=== PATIENT | male | born 1985 | race Caucasian/White ===

== ENCOUNTER 2017-06-19 14:35 | Emergency (ER) | payer SELFPAY ==
[~2017-06-19] VITALS: Ht 172.7 cm; Wt 81.5 kg
[~2017-06-19 14:35] MED LIST: IBUP800T23 PO; NAPR220T95 PO; TRAM50 PO
[2017-06-19 14:36] VITALS: BP 117/71; PULSE 78; RESP 16; TEMP 97.4; O2SAT 100
--- NOTE | 2017-06-19 15:56 | PD ---
HPI Chief Complaint: Injury Time Seen by Provider: 15:18 Travel History International Travel<30 days: No Contact w/Intl Traveler<30days: No Traveled to known affect area: No History of Present Illness HPI 31-year-old male here with right shoulder pain for the last 6 months. He denies specific trauma. 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 He reports pain with external rotation and ordered extension of the right upper extremity. Symptoms slightly improved with rest. He denies paresthesia or weakness of the extremity. No other symptoms. Symptom severity is moderate. PFSH Social History Alcohol Use: No Tobacco Use: No Substance Use: No Allergies-Medications (Allergen,Severity, Reaction): Coded Allergies: No Known Allergies (Verified Adverse Reaction, Unknown, 06/19/17) Reported Meds & Prescriptions Reported Meds & Active Scripts Active Ibuprofen 800 Mg Tab 800 Mg PO TID Ultram (Tramadol HCl) 50 Mg Tab 50 Mg PO Q6H PRN FOR PAIN Reported Aleve (Naproxen Sodium) 220 Mg Tab 220 Mg PO TODAY Review of Systems Except as stated in HPI: all other systems reviewed are Neg General / Constitutional: No: Fever Eyes: No: Visual changes HENT: No: Headaches Cardiovascular: No: Chest Pain or Discomfort Respiratory: No: Shortness of Breath Gastrointestinal: No: Abdominal Pain Genitourinary: No: Dysuria Physical Exam Narrative GENERAL: Alert and well-appearing male. SKIN: Warm and dry. HEAD: Normocephalic. EYES: No injection or drainage. NECK: Supple, trachea midline. CARDIOVASCULAR: Regular rate and rhythm without murmurs, gallops, or rubs. RESPIRATORY: Breath sounds equal bilaterally. No accessory muscle use. MUSCULOSKELETAL: No cyanosis, or edema. Right shoulder: Patient reports pain in the anterior and posterior aspect of the shoulder with forward extension and external rotation of the shoulder. Positive Neer's test. No deformity. 2+ distal pulses. Normal sensation. Brisk cap refill. BACK: without obvious deformity. Mild right trapezius muscle tenderness. Data Data Last Documented VS Vital Signs Date Time Temp Pulse Resp B/P (MAP) Pulse Ox O2 Delivery O2 Flow Rate FiO2 06/19/17 14:36 97.4 78 16 117/71 (86) 100 Room Air MDM Medical Decision Making Medical Screen Exam Complete: Yes Emergency Medical Condition: Yes Differential Diagnosis Rotator cuff injury, shoulder strain, tendinitis, bursitis Narrative Course 31-year-old male here with nontraumatic right shoulder pain. This appears to be shoulder strain versus rotator cuff injury. Patient will be given a sling and put on NSAIDs. Instructed to follow-up with orthopedic doctor. Diagnosis Primary Impression: Shoulder pain, right Qualified Codes: M25.511 - Pain in right shoulder Referrals: Cristian Rojas MD Orthopedist Primary Care Physician Additional Instructions: Sling for immobilization. Ibuprofen every 6 hours for the next 5 days. Robaxin as needed for muscle spasm. Follow-up with orthopedic doctor. Scripts Methocarbamol (Robaxin) 750 Mg Tab 750 MG PO TID for Muscle Spasm, #12 TAB 0 Refills Prov: Elma Dior 06/19/17 Ibuprofen (Ibuprofen) 800 Mg Tab 800 MG PO Q6HR Y for PAIN, #40 TAB 0 Refills Prov: Elma Dior 06/19/17 Disposition: 01 DISCHARGE HOME Condition: Stable Elma Dior Jun 19, 2017 15:56
[2017-06-19] MEDS ORDERED: ROBA750T PO (15:58)
[2017-06-19] MEDS ORDERED: IBUP1TAB7 PO (15:58)
== END 2017-06-19 16:27 | disposition home or self-care (01) ==
LOC: NEPK 14:35
DX: M25.511 Pain in right shoulder (principal)
CPT/HCPCS: 99283